=== PATIENT | female | born 2000 | race Caucasian/White ===

== ENCOUNTER 2021-06-08 06:10 | Emergency (ER) | payer OTHER ==
[~2021-06-08] VITALS: Ht 167.6 cm; Wt 49.9 kg
[2021-06-08] MEDS ORDERED: KETO10TA2 PO (09:34)
[2021-06-08] MEDS ORDERED: ORPHENADRINE C100 MG PO (09:34)
== END 2021-06-08 09:49 | disposition home or self-care (01) ==
LOC: ER 06:10
DX: M25.531 Pain in right wrist (principal)

== ENCOUNTER 2021-08-07 04:46 | Inpatient (IN) | payer OTHER ==
[~2021-08-07] VITALS: Ht 162.6 cm; Wt 45.8 kg
[~2021-08-07 04:46] MED LIST: KETO10TA2 PO; ORPHENADRINE C100 MG PO
[2021-08-07] MEDS ORDERED: ENDOMETRIN100 MG (05:12)
== END 2021-08-07 11:50 | disposition home or self-care (01) | DRG 743 ==
LOC: ER 04:46 → SEC-K 07:23 → O/R 07:23
PROVIDERS: ADMIT Obstetrics & Gynecology; ATTEND Obstetrics & Gynecology
PROC: 0UB04ZZ Excision of Right Ovary, Percutaneous Endoscopic Approach (ICD-10-PCS; principal; 2021-08-07 08:45)
DX: D27.0 Benign neoplasm of right ovary (principal); R10.2 Pelvic and perineal pain

== ENCOUNTER → 2022-07-12 | Outpatient (CLI) | payer OTHER ==
[~2022-07-12] MED LIST changes: +ENDOMETRIN100 MG
== END | disposition home or self-care (01) ==
LOC: RAD 14:18
PROVIDERS: ATTEND Obstetrics & Gynecology
DX: M99.01 Segmental and somatic dysfunction of cervical region (principal); M99.02 Segmental and somatic dysfunction of thoracic region; M99.03 Segmental and somatic dysfunction of lumbar region; M99.04 Segmental and somatic dysfunction of sacral region; M99.05 Segmental and somatic dysfunction of pelvic region

== ENCOUNTER 2023-07-05 11:46 | Outpatient (CLI) | payer OTHER | END 2023-07-05 12:00 | disposition home or self-care (01) | LOC: SONOGRAMA 11:46 | PROVIDERS: ATTEND Obstetrics & Gynecology | DX: N94.0 Mittelschmerz (principal); R10.2 Pelvic and perineal pain; N94.89 Other specified conditions associated with female genital organs and menstrual cycle ==